=== PATIENT | female | born 1985 | race Caucasian/White ===

== ENCOUNTER → 2016-11-04 10:18 | Outpatient (CLI) | payer MEDICAID ==
[2014-10-25 08:36] VITALS: BMI 21.9
[~2016-11-04 10:18] MED LIST: HYDROCODONE-APA1 TAB PO
== END | disposition home or self-care (01) ==
LOC: D.MRI 10-28 11:00
DX: S83.231A Complex tear of medial meniscus, current injury, right knee, initial encounter (principal)

== ENCOUNTER 2016-12-07 06:30 | Day surgery (SDC) | payer MEDICAID ==
[~2016-12-07] VITALS: Ht 170.2 cm; Wt 68.9 kg
--- NOTE | ~2016-12-07 | OP ---
PATIENT NAME: LESTER THAKUR MEDICAL RECORD: [id number] :85 LOCATION:D[facility] ADMISSION DATE: SURGEON: ARMANDO ROJAS MD DATE OF OPERATION: 12/07/2016 PREOPERATIVE DIAGNOSIS: Patellofemoral syndrome and pain. POSTOPERATIVE DIAGNOSIS: Patellofemoral syndrome and pain. PROCEDURE: Right knee arthroscopy with arthroscopic lateral release. SURGEON: Armando Rojas MD. ANESTHESIA: General. INTRAOPERATIVE COMPLICATIONS: None. 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 OPERATIVE SUMMARY IN DETAIL: After obtaining the appropriate preoperative orthopedic surgery consent, as well as anesthetic consultation, evaluation and clearance, the patient was brought to the operating room and placed on the operating table in supine position. After general laryngeal mask was administered, tourniquet was placed about the proximal aspect of the right lower extremity. Right lower extremity was prepped and draped in routine sterile fashion. Leg was elevated, exsanguinated and tourniquet was inflated to 350 mmHg. Routine inferolateral portal was established followed by superomedial portal and inferomedial portal. Diagnostic arthroscopy revealed the above findings. Under direct visualization, tissue ablation system was utilized to perform a lateral release from just beneath the vastus lateralis to the inferior lateral portal. Having completed this, arthroscopy portals were closed in routine interrupted fashion using 4-0 Prolene. Sterile dressings were applied. The patient was awakened, taken to recovery room in stable condition. All final needle and sponge counts were correct. TRANSINT:[id number] Voice Confirmation ID: [id number] DOCUMENT ID: [id number] ARMANDO ROJAS MD CC: [id number] DICTATION DATE: 01/04/17 1353 SAS PROGRAMMER ANALYST: 01/04/17 1715 [facility] 12/07/16 [place] [address]
[~2016-12-07 06:30] MED LIST changes: +ULTRAM50 MG PO
[2016-12-07 07:10] LABS: HEMATOCRIT 39.9 % (36.0-48.0); HEMOGLOBIN 13.5 g/dL (12-16); MCH 33.5 pg (26.0-34.0); MCHC 33.8 g/dL (31.0-37.0); MEAN PLATELET VOLUME 11.1 fL (7.4-10.4); RBC 4.03 10x6/uL (4.00-5.40); RDW 13.1 % (11.5-14.5); WBC 7.6 10x3/uL (4.8-10.8)
[2016-12-07 07:26] VITALS: BP 115/76; Ht 170.2 cm; Wt 68.9 kg
[2016-12-07] MEDS ORDERED: HYDROCODONE-APA1 TAB PO (09:37)
--- NOTE | 2016-12-07 13:01 | NUR ---
1240 DRESSED. AWAKE & ALERT. GIVEN DISCHARGE INFORMATION INCLUDING: RX FOR NORCO 10/325MG, MED REC., POST OP INSTRUCTIONS FOR ARTHROSCOPY OF THE KNEE, REHAB INSTRUCTION SHEET, RTC APPT., & [facility] OPS D/C INSTRUCTION SHEET. PT VOICED UNDERSTANDING. TO PRIVATE CAR PER WHEELCHAIR BY DICK HARRIS. Karla ISRAEL R.N.
== END 2016-12-07 12:40 | disposition home or self-care (01) ==
LOC: D.OPS 06:30 → D.PAN 09:00 → D.OPS 09:00
PROVIDERS: Anesthesiology
DX: M22.2X1 Patellofemoral disorders, right knee (principal); F17.200 Nicotine dependence, unspecified, uncomplicated; Z01.812 Encounter for preprocedural laboratory examination; S83.191A Other subluxation of right knee, initial encounter; M25.561 Pain in right knee